=== PATIENT | male | born 1970 ===

== ENCOUNTER 2020-03-14 04:29 | Outpatient (CLI) | payer SELFPAY ==
[2020-03-14 13:19] LABS: HEMOGLOBIN A1C 5.6 % (4.5-6.2)
[2020-03-14 14:28] LABS: CHOL/HDL RATIO 5.41 (0.00-4.99)
== END 2020-03-14 23:59 | disposition home or self-care (01) ==
LOC: HW HEART 04:29
DX: Z13.6 Encounter for screening for cardiovascular disorders (principal)
CPT/HCPCS: 36415